=== PATIENT | female | born 1930 | race Caucasian/White ===

== ENCOUNTER 2017-01-08 13:28 | Inpatient (IN) | payer MEDICARE, MEDICAID ==
[~2017-01-08] VITALS: Ht 162.6 cm; Wt 69.8 kg
[~2017-01-08 13:28] MED LIST: ATOR40TA49 PO; AUGM500T7 PO; CLON0.1D TD; CYCL1PAK PO; EZET10 PO; FURO20 PO; KLOR20TA6 PO; LEVO112T2 PO; LEXA10TA PO; LISI10 PO; LISI20 PO; LORA0.5T PO; LORTA5 PO; MIAC200S; OXYB5TAB PO; RIVA10 PO; TAB-TAB PO; WALKER STANDARD
[2017-01-08 13:31] VITALS: BP 164/94; PULSE 108; RESP 24; TEMP 98.2; O2SAT 99
--- NOTE | 2017-01-08 13:48 | PD ---
Physical Exam Time Seen by Provider: 13:47 Narrative 86 y/o female with hx of chf presents with sob and elevated bp for 2-3 weeks. Vital signs reviewed. seen at triage desk. Awaiting bed placement. Data Data Last Documented VS Vital Signs Date Time Temp Pulse Resp B/P Pulse Ox O2 Delivery O2 Flow Rate FiO2 01/08/17 13:31 98.2 108 24 164/94 99 Room Air [facility] Medical Record Reviewed: Yes Supervised Visit with HUAN: Geovanni eFrraro Jan 08, 2017 13:48
--- NOTE | 2017-01-08 16:11 | PD ---
HPI Chief Complaint: Respiratory Symptoms Time Seen by Provider: 16:00 Travel History International Travel<30 days: No Contact w/Intl Traveler<30days: No Traveled to known affect area: No History of Present Illness HPI 86yo F with PMH of dementia, HTN, CHF presents to the ED with worsening sob for the few days. Daughter states pt has had sob for a few weeks and use to take lasix PRN but was taking it every day. Denies any fever, cough, chest pain, n/v , abdominal pain, focal weakness or numbness. PFSH Past Medical History Arthritis: Yes Asthma: No Atrial Fibrillation: Yes Autoimmune Disease: No Blood Disorders: No Anxiety: Yes Depression: Yes Heart Rhythm Problems: Yes (A-FIB) Cancer: No Cardiovascular Problems: Yes High Cholesterol: No Chemotherapy: No Chest Pain: No Congestive Heart Failure: Yes COPD: No Cerebrovascular Accident: Yes Coronary Artery Disease: Yes Dementia: Yes Diabetes: Yes Diminished Hearing: Yes (BILATERAL) Endocrine: Yes Gastrointestinal Disorders: No GERD: No Glaucoma: No Genitourinary: Yes (FREQUENT UTI'S) Headaches: No Hepatitis: No Hiatal Hernia: No Hypertension: Yes Immune Disorder: No Implanted Vascular Access Dvce: Yes Kidney Stones: No Musculoskeletal: Yes (BILATERAL KNEES) Neurologic: Yes (DEMENTIA) Psychiatric: Yes Reproductive: No Respiratory: Yes Immunizations Current: Yes Migraines: No Myocardial Infarction: Yes (X 3) Radiation Therapy: No Renal Failure: Yes (chronic kidney disease) Seizures: No Sickle Cell Disease: No Sleep Apnea: No Thyroid Disease: Yes Ulcer: No Menopausal: Yes : 8 Para: 6 Miscarriage: 2 Past Surgical History Abdominal Surgery: No AICD: No Arteriovenous Shunt: No Body Medical Devices: PIN IN LEFT HIP Cardiac Surgery: Yes Coronary Artery Bypass Graft: Yes (X3) Ear Surgery: No Endocrine Surgery: No Eye Surgery: Yes Genitourinary Surgery: No Gynecologic Surgery: Yes Hysterectomy: Yes Insulin Pump: No Joint Replacement: No Neurologic Surgery: Yes (TIAs x 5 (1994)) Oral Surgery: No Pacemaker: No Thoracic Surgery: No Other Surgery: Yes (Heart sx, hysterectomy sx, vascular sx) Social History Alcohol Use: No Tobacco Use: No Substance Use: No Allergies-Medications (Allergen,Severity, Reaction): Coded Allergies: No Known Allergies (Verified , 03/10/16) Reported Meds & Prescriptions Reported Meds & Active Scripts Active Reported Tramadol (Tramadol HCl) 50 Mg Tab 25 Mg PO Q6HR PRN Calcium (Calcium Carbonate) 600 Mg Tab 600 Mg PO HS Cefuroxime (Cefuroxime Axetil) 500 Mg Tab 500 Mg PO BID Aspirin EC (Aspirin) 81 Mg Tabdr 81 Mg PO HS Nitroglycerin SL (Nitroglycerin) 0.4 Mg Subl 0.4 Mg SL DIRECTED PRN ONE TABLET UNDER THE TONGUE NEEDED FOR CHEST PAIN, MAY REPEAT EVERY FIVE MINUTES FOR A TOTAL OF 3 DOSES OR CALL 911 IF NO RELIEF K-Tab (Potassium Chloride) 10 Meq Tab 10 Meq PO BID Centrum Silver Adult 50+ (Multiple Vitamins W/ Minerals) 1 Tab Tab 1 Tab PO DAILY Lorazepam 0.5 Mg Tab 0.5 Mg PO BID PRN Levothyroxine (Levothyroxine Sodium) 88 Mcg Tab 88 Mcg PO DAILY Lasix (Furosemide) 20 Mg Tab 20 Mg PO DAILY Lexapro (Escitalopram Oxalate) 10 Mg Tab 10 Mg PO HS Calcitonin ([place]) Nasal [place] (Calcitonin [place]) 200 Unit/Act [place] 1 [place] NASAL DAILY Alternate nostrils daily. Atorvastatin (Atorvastatin Calcium) 10 Mg Tab 10 Mg PO TUTA @ 2100 Review of Systems Except as stated in HPI: all other systems reviewed are Neg Physical Exam Narrative GENERAL: 86yo F not in distress. SKIN: Focused skin assessment warm/dry. HEAD: Atraumatic. Normocephalic. CARDIOVASCULAR: Tachycardic in the low 100s. No murmur appreciated. RESPIRATORY: + accessory muscle use. Very mild end expiratory wheezing. Decreased bibasilar breath sounds. GASTROINTESTINAL: Abdomen soft, non-tender, nondistended. No rebound tenderness or guarding. MUSCULOSKELETAL: No obvious deformities. No clubbing. No cyanosis. No edema. NEUROLOGICAL: Awake and alert. No obvious cranial nerve deficits. Motor grossly within normal limits. Normal speech. PSYCHIATRIC: Appropriate mood and affect; insight and judgment normal. Data Data Last Documented VS Vital Signs Date Time Temp Pulse Resp B/P Pulse Ox O2 Delivery O2 Flow Rate FiO2 01/08/17 19:47 98.3 100 18 162/91 99 Nasal Cannula 2 Orders Complete Blood Count With Diff (01/08/17 15:30) Comprehensive Metabolic Panel (01/08/17 15:30) B-Type Natriuretic Peptide (01/08/17 15:30) Magnesium (Mg) (01/08/17 15:30) Ckmb (Isoenzyme) Profile (01/08/17 15:30) Troponin I (01/08/17 15:30) Electrocardiogram (01/08/17 15:30) Chest, Single Ap (01/08/17 15:30) Albuterol Neb (Albuterol Neb) (01/08/17 17:00) Furosemide Inj (Lasix Inj) (01/08/17 17:30) Aspirin (Aspirin) (01/08/17 18:45) Ct Pulmonary Angiogram (01/08/17 18:49) Iohexol 350 Inj (Omnipaque 350 Inj) (01/08/17 20:01) Admit Order (Ed Use Only) (01/08/17 20:51) Labs Laboratory Tests Test 01/08/17 01/08/17 15:48 17:58 White Blood Count 6.0 TH/MM3 Red Blood Count 4.28 MIL/MM3 Hemoglobin 13.2 GM/DL Hematocrit 39.0 % Mean Corpuscular Volume 91.2 FL Mean Corpuscular Hemoglobin 30.7 PG Mean Corpuscular Hemoglobin 33.7 % Concent Red Cell Distribution Width 15.8 % Platelet Count 195 TH/MM3 Mean Platelet Volume 8.3 FL Neutrophils (%) (Auto) 61.9 % Lymphocytes (%) (Auto) 19.8 % Monocytes (%) (Auto) 8.3 % Eosinophils (%) (Auto) 8.8 % Basophils (%) (Auto) 1.2 % Neutrophils # (Auto) 3.7 TH/MM3 Lymphocytes # (Auto) 1.2 TH/MM3 Monocytes # (Auto) 0.5 TH/MM3 Eosinophils # (Auto) 0.5 TH/MM3 Basophils # (Auto) 0.1 TH/MM3 CBC Comment DIFF FINAL Differential Comment B-Type Natriuretic Peptide 459 PG/ML Sodium Level 141 MEQ/L Potassium Level 3.5 MEQ/L Chloride Level 107 MEQ/L Carbon Dioxide Level 23.4 MEQ/L Anion Gap 11 MEQ/L Blood Urea Nitrogen 14 MG/DL Creatinine 1.03 MG/DL Estimat Glomerular Filtration 51 ML/MIN Rate Random Glucose 111 MG/DL Calcium Level 9.4 MG/DL Magnesium Level 2.1 MG/DL Total Bilirubin 1.6 MG/DL Aspartate Amino Transf 28 U/L (AST/SGOT) Alanine Aminotransferase 25 U/L (ALT/SGPT) Alkaline Phosphatase 72 U/L Total Creatine Kinase 77 U/L Troponin I 0.14 NG/ML Total Protein 8.0 GM/DL Albumin 4.0 GM/DL MDM Medical Decision Making Medical Screen Exam Complete: Yes Emergency Medical Condition: Yes Interpretation(s) EKG: Atrial flutter. LAD. Differential Diagnosis CHF exacerbation vs. Pneumonia vs. atypical ACS Narrative Course 86yo F with sob that is worsening for the last few days. Pt has very mild end expiratory wheezing which may be from CHF. Will give 1 albuterol nebulizer. Labs reviewed, only CBC is back. No leukocytosis. Pt took her lasix 20mg today , will give 40mg IV. CXR showed cardiomegaly, minimal basilar atelectasis. Sign out to next team to follow up rest of labs and reevaluate. Dr. Ortiz is pt 's PMD. Diagnosis Primary Impression: CHF (congestive heart failure) Qualified Code: I50.23 - Acute on chronic systolic congestive heart failure Anisa Quintanilla DO Jan 08, 2017 16:11
[2017-01-08 16:29] LABS: AUTOMATED NEUTROPHIL # 3.7 TH/MM3 (1.8-7.7); BASOPHIL # 0.1 TH/MM3 (0-0.2); BASOPHIL % 1.2 % (0.0-2.0); EOSINOPHIL # 0.5 TH/MM3 (0-0.4); EOSINOPHIL % 8.8 % (0.0-4.0); HEMO FLAGS DIFF FINAL; LYMPH % 19.8 % (9.0-44.0); LYMPHOCYTE # 1.2 TH/MM3 (1.0-4.8); MEAN CELL VOLUME 91.2 FL (80.0-100.0); MEAN CORPUSCULAR HEMOGLOBIN 30.7 PG (27.0-34.0); MEAN CORPUSCULAR HGB CONC 33.7 % (32.0-36.0); MONO % 8.3 % (0.0-8.0); NEUT % 61.9 % (16.0-70.0); PLATELET COUNT 195 TH/MM3 (150-450); RED BLOOD COUNT 4.28 MIL/MM3 (4.00-5.30); RED CELL DISTRIBUTION WIDTH 15.8 % (11.6-17.2)
--- NOTE | 2017-01-08 16:30 | RADRPT ---
EXAM DATE/TIME: 01/08/2017 15:37 [facility] COMPARISON: No previous studies available for comparison. INDICATIONS : Short of breath. MEDICAL HISTORY : Hypertension. Myocardial infarction. Dementia. TIA. Head injury. SURGICAL HISTORY : CABG. ENCOUNTER: Initial ACUITY: 1 day PAIN SCORE: 2/10 LOCATION: Bilateral chest FINDINGS: Heart size is enlarged. Minimal basal atelectasis. Postop median sternotomy. No pneumothorax. CONCLUSION: 1. Cardiomegaly. Minimal basal atelectasis. Sarthak Starks MD on January 08, 2017 at 16:22 Board Certified Radiologist. This report was verified electronically.
[2017-01-08] MEDS ORDERED: RESP: ALBUTEROL 2.5 MG/3 ML NEB (SCH) NEB ONE (17:00)
[2017-01-08] MEDS ORDERED: CALC200S NASAL (17:03)
[2017-01-08] MEDS ORDERED: ATOR10TA15 PO (17:03)
[2017-01-08] MEDS ORDERED: MULT1TAB PO (17:08)
[2017-01-08] MEDS ORDERED: LEVO88TA2 PO (17:08)
[2017-01-08] MEDS ORDERED: K-TA10TA PO (17:08)
[2017-01-08] MEDS ORDERED: NITR1SUB3 SL (17:08)
[2017-01-08] MEDS ORDERED: LEXA10TA PO (17:08)
[2017-01-08] MEDS ORDERED: LORA-373 PO (17:08)
[2017-01-08] MEDS ORDERED: ASPI81TA11 PO (17:08)
[2017-01-08] MEDS ORDERED: FURO1TAB62 PO (17:08)
[2017-01-08] MEDS ORDERED: CEFU1TAB20 PO (17:09)
[2017-01-08] MEDS ORDERED: CALC600T25 PO (17:11)
[2017-01-08] MEDS ORDERED: TRAM50TA PO (17:11)
[2017-01-08] MEDS ORDERED: FUROSEMIDE 40 MG/4 ML VIAL IV PUSH ONE (17:30)
[2017-01-08 18:33] LABS: ANION GAP 11 MEQ/L (5-15); BICARBONATE 23.4 MEQ/L (21.0-32.0); BLOOD UREA NITROGEN 14 MG/DL (7-18); CHLORIDE 107 MEQ/L (98-107); GLOMERULAR FILTRATION RATE 51 ML/MIN (>89); MAGNESIUM 2.1 MG/DL (1.5-2.5); POTASSIUM 3.5 MEQ/L (3.5-5.1); SODIUM (NA) 141 MEQ/L (136-145)
[2017-01-08 18:34] LABS: ALT (GPT) 25 U/L (10-53); AST (GOT) 28 U/L (15-37)
[2017-01-08 18:38] LABS: ALKALINE PHOSPHATASE 72 U/L (45-117); TOTAL BILIRUBIN ADULT 1.6 MG/DL (0.2-1.0)
[2017-01-08 18:39] LABS: CREATINE KINASE 77 U/L (26-192)
[2017-01-08] MEDS ORDERED: ASPIRIN 325 MG TAB PO ONE (18:45)
--- NOTE | 2017-01-08 18:49 | PD ---
Data Data Last Documented VS Vital Signs Date Time Temp Pulse Resp B/P Pulse Ox O2 Delivery O2 Flow Rate FiO2 01/08/17 19:47 98.3 100 18 162/91 99 Nasal Cannula 2 Orders Complete Blood Count With Diff (01/08/17 15:30) Comprehensive Metabolic Panel (01/08/17 15:30) B-Type Natriuretic Peptide (01/08/17 15:30) Magnesium (Mg) (01/08/17 15:30) Ckmb (Isoenzyme) Profile (01/08/17 15:30) Troponin I (01/08/17 15:30) Electrocardiogram (01/08/17 15:30) Chest, Single Ap (01/08/17 15:30) Albuterol Neb (Albuterol Neb) (01/08/17 17:00) Furosemide Inj (Lasix Inj) (01/08/17 17:30) Aspirin (Aspirin) (01/08/17 18:45) Ct Pulmonary Angiogram (01/08/17 18:49) Iohexol 350 Inj (Omnipaque 350 Inj) (01/08/17 20:01) Admit Order (Ed Use Only) (01/08/17 20:51) Labs Laboratory Tests Test 01/08/17 01/08/17 15:48 17:58 White Blood Count 6.0 TH/MM3 Red Blood Count 4.28 MIL/MM3 Hemoglobin 13.2 GM/DL Hematocrit 39.0 % Mean Corpuscular Volume 91.2 FL Mean Corpuscular Hemoglobin 30.7 PG Mean Corpuscular Hemoglobin 33.7 % Concent Red Cell Distribution Width 15.8 % Platelet Count 195 TH/MM3 Mean Platelet Volume 8.3 FL Neutrophils (%) (Auto) 61.9 % Lymphocytes (%) (Auto) 19.8 % Monocytes (%) (Auto) 8.3 % Eosinophils (%) (Auto) 8.8 % Basophils (%) (Auto) 1.2 % Neutrophils # (Auto) 3.7 TH/MM3 Lymphocytes # (Auto) 1.2 TH/MM3 Monocytes # (Auto) 0.5 TH/MM3 Eosinophils # (Auto) 0.5 TH/MM3 Basophils # (Auto) 0.1 TH/MM3 CBC Comment DIFF FINAL Differential Comment B-Type Natriuretic Peptide 459 PG/ML Sodium Level 141 MEQ/L Potassium Level 3.5 MEQ/L Chloride Level 107 MEQ/L Carbon Dioxide Level 23.4 MEQ/L Anion Gap 11 MEQ/L Blood Urea Nitrogen 14 MG/DL Creatinine 1.03 MG/DL Estimat Glomerular Filtration 51 ML/MIN Rate Random Glucose 111 MG/DL Calcium Level 9.4 MG/DL Magnesium Level 2.1 MG/DL Total Bilirubin 1.6 MG/DL Aspartate Amino Transf 28 U/L (AST/SGOT) Alanine Aminotransferase 25 U/L (ALT/SGPT) Alkaline Phosphatase 72 U/L Total Creatine Kinase 77 U/L Troponin I 0.14 NG/ML Total Protein 8.0 GM/DL Albumin 4.0 GM/DL [facility] Medical Record Reviewed: Yes Supervised Visit with HUAN: No Interpretation(s) Vital Signs Date Time Temp Pulse Resp B/P Pulse Ox O2 Delivery O2 Flow Rate FiO2 01/08/17 16:03 96 20 96 Room Air 01/08/17 13:31 98.2 108 24 164/94 99 Room Air Laboratory Tests Test 01/08/17 01/08/17 15:48 17:58 White Blood Count 6.0 TH/MM3 (4.0-11.0) Red Blood Count 4.28 MIL/MM3 (4.00-5.30) Hemoglobin 13.2 GM/DL (11.6-15.3) Hematocrit 39.0 % (35.0-46.0) Mean Corpuscular Volume 91.2 FL (80.0-100.0) Mean Corpuscular Hemoglobin 30.7 PG (27.0-34.0) Mean Corpuscular Hemoglobin 33.7 % Concent (32.0-36.0) Red Cell Distribution Width 15.8 % (11.6-17.2) Platelet Count 195 TH/MM3 (150-450) Mean Platelet Volume 8.3 FL (7.0-11.0) Neutrophils (%) (Auto) 61.9 % (16.0-70.0) Lymphocytes (%) (Auto) 19.8 % (9.0-44.0) Monocytes (%) (Auto) 8.3 % (0.0-8.0) Eosinophils (%) (Auto) 8.8 % (0.0-4.0) Basophils (%) (Auto) 1.2 % (0.0-2.0) Neutrophils # (Auto) 3.7 TH/MM3 (1.8-7.7) Lymphocytes # (Auto) 1.2 TH/MM3 (1.0-4.8) Monocytes # (Auto) 0.5 TH/MM3 (0-0.9) Eosinophils # (Auto) 0.5 TH/MM3 (0-0.4) Basophils # (Auto) 0.1 TH/MM3 (0-0.2) CBC Comment DIFF FINAL Differential Comment B-Type Natriuretic Peptide 459 PG/ML (0-100) Sodium Level 141 MEQ/L (136-145) Potassium Level 3.5 MEQ/L (3.5-5.1) Chloride Level 107 MEQ/L (98-107) Carbon Dioxide Level 23.4 MEQ/L (21.0-32.0) Anion Gap 11 MEQ/L (5-15) Blood Urea Nitrogen 14 MG/DL (7-18) Creatinine 1.03 MG/DL (0.50-1.00) Estimat Glomerular Filtration 51 ML/MIN (>89) Rate Random Glucose 111 MG/DL (74-106) Calcium Level 9.4 MG/DL (8.5-10.1) Magnesium Level 2.1 MG/DL (1.5-2.5) Total Bilirubin 1.6 MG/DL (0.2-1.0) Aspartate Amino Transf 28 U/L (15-37) (AST/SGOT) Alanine Aminotransferase 25 U/L (10-53) (ALT/SGPT) Alkaline Phosphatase 72 U/L (45-117) Total Creatine Kinase 77 U/L (26-192) Troponin I 0.14 NG/ML (0.02-0.05) Total Protein 8.0 GM/DL (6.4-8.2) Albumin 4.0 GM/DL (3.4-5.0) Last Impressions Chest X-Ray 01/08/17 1530 Signed Impressions: Service Date/Time: January 15:37 - CONCLUSION: 1. Cardiomegaly. Minimal basal atelectasis. Sarthak Starks MD Narrative Course patient signed out to me by dr. duff at change of shift Patient is an 86-year-old female with history of hypertension, CHF, dementia, the emergency room with her daughter with complaints of shortness of breath for the past [address] Ortiz put her on Lasix 20 mg daily as it used to be a when necessary medication, reports that this isn't helping with her symptoms. Patient reports that she feels short of breath at rest as well as on exertion. Denies chest pain at this time. Patient was pending lab work and re-eval Patient was reevaluated, reports that she is not feeling any better. BNP is 459 , she was given 40 mg of IV Lasix as well as a neb with no relief of symptoms. BNP 459 Trop 0.14 - patient with no chest pain - ASA ordered for her plan to order CTA to rule out PE Vital Signs Date Time Temp Pulse Resp B/P Pulse Ox O2 Delivery O2 Flow Rate FiO2 01/08/17 19:47 98.3 100 18 162/91 99 Nasal Cannula 2 01/08/17 16:03 96 20 96 Room Air 01/08/17 13:31 98.2 108 24 164/94 99 Room Air Laboratory Tests Test 01/08/17 01/08/17 15:48 17:58 White Blood Count 6.0 TH/MM3 (4.0-11.0) Red Blood Count 4.28 MIL/MM3 (4.00-5.30) Hemoglobin 13.2 GM/DL (11.6-15.3) Hematocrit 39.0 % (35.0-46.0) Mean Corpuscular Volume 91.2 FL (80.0-100.0) Mean Corpuscular Hemoglobin 30.7 PG (27.0-34.0) Mean Corpuscular Hemoglobin 33.7 % Concent (32.0-36.0) Red Cell Distribution Width 15.8 % (11.6-17.2) Platelet Count 195 TH/MM3 (150-450) Mean Platelet Volume 8.3 FL (7.0-11.0) Neutrophils (%) (Auto) 61.9 % (16.0-70.0) Lymphocytes (%) (Auto) 19.8 % (9.0-44.0) Monocytes (%) (Auto) 8.3 % (0.0-8.0) Eosinophils (%) (Auto) 8.8 % (0.0-4.0) Basophils (%) (Auto) 1.2 % (0.0-2.0) Neutrophils # (Auto) 3.7 TH/MM3 (1.8-7.7) Lymphocytes # (Auto) 1.2 TH/MM3 (1.0-4.8) Monocytes # (Auto) 0.5 TH/MM3 (0-0.9) Eosinophils # (Auto) 0.5 TH/MM3 (0-0.4) Basophils # (Auto) 0.1 TH/MM3 (0-0.2) CBC Comment DIFF FINAL Differential Comment B-Type Natriuretic Peptide 459 PG/ML (0-100) Sodium Level 141 MEQ/L (136-145) Potassium Level 3.5 MEQ/L (3.5-5.1) Chloride Level 107 MEQ/L (98-107) Carbon Dioxide Level 23.4 MEQ/L (21.0-32.0) Anion Gap 11 MEQ/L (5-15) Blood Urea Nitrogen 14 MG/DL (7-18) Creatinine 1.03 MG/DL (0.50-1.00) Estimat Glomerular Filtration 51 ML/MIN (>89) Rate Random Glucose 111 MG/DL (74-106) Calcium Level 9.4 MG/DL (8.5-10.1) Magnesium Level 2.1 MG/DL (1.5-2.5) Total Bilirubin 1.6 MG/DL (0.2-1.0) Aspartate Amino Transf 28 U/L (15-37) (AST/SGOT) Alanine Aminotransferase 25 U/L (10-53) (ALT/SGPT) Alkaline Phosphatase 72 U/L (45-117) Total Creatine Kinase 77 U/L (26-192) Troponin I 0.14 NG/ML (0.02-0.05) Total Protein 8.0 GM/DL (6.4-8.2) Albumin 4.0 GM/DL (3.4-5.0) Last Impressions Chest X-Ray 01/08/17 1530 Signed Impressions: Service Date/Time: January 15:37 - CONCLUSION: 1. Cardiomegaly. Minimal basal atelectasis. Sarthak Starks MD Reviewed all labs and studies with patient and micro computer specialist. Plan to obs for CHF exacerbation case reviewed with dr. mancia who accepts pt to service Diagnosis Primary Impression: CHF (congestive heart failure) Qualified Code: I50.23 - Acute on chronic systolic congestive heart failure Additional Impressions: Elevated troponin Pleural effusion Admitting Information Admitting Physician Requests: Observation Selin Patel DO Jan 08, 2017 18:49
[2017-01-08 19:47] VITALS: BP 162/91; PULSE 100; RESP 18; TEMP 98.3; O2SAT 99
[2017-01-08] MEDS ORDERED: IOHEXOL 350 MG/ML 10 ML VIAL (for RAD DIAG) IV ONE (20:01)
--- NOTE | 2017-01-08 20:33 | RADRPT ---
EXAM DATE/TIME: 01/08/2017 19:56 [facility] COMPARISON: No previous studies available for comparison. INDICATIONS : Short of breath for three weeks. IV CONTRAST: 75 cc Omnipaque 350 (iohexol) IV RADIATION DOSE: 10.13 CTDIvol (mGy) MEDICAL HISTORY : Dementia. Hypertension. Renal failure, acute.Diabetes, AFIB, CHF, CAD. SURGICAL HISTORY : CABG ENCOUNTER: Initial ACUITY: 3 weeks PAIN SCALE: Non-responsive LOCATION: Bilateral chest TECHNIQUE: Volumetric scanning of the chest was performed using a pulmonary embolism protocol MIP images were re constructed. Using automated exposure control and adjustment of the mA and/or kV according to patien t size, radiation dose was kept as low as reasonably achievable to obtain optimal diagnostic quality images. DICOM format image data is available electronically for review and comparison. Follow-up recommendations for incidentally detected pulmonary nodules are based at a minimum on nodul e size and patient risk factors according to Fleischner Society Guidelines. FINDINGS: PULMONARY ARTERIES: No filling defects are seen in the pulmonary arteries through the segmental level. LUNGS: There is a mild patchy areas of opacity in the left costophrenic angle which could represent small in filtrates or atelectasis. No focal nodule seen. PLEURAE: Small bilateral pleural effusions measuring 12 mm on the right and 6 mm on the left. MEDIASTINUM: Several enlarged middle mediastinal lymph nodes including subcarinal (2.3 cm) and precarinal (2.0 cm) . CONCLUSION: 1. The study is negative for pulmonary embolism. 2. Small bilateral pleural effusions and mediastinal adenopathy. 3. Small infiltrate or atelectasis left lung base. Matt Lopez MD on January 08, 2017 at 20:28 Board Certified Radiologist. This report was verified electronically.
[2017-01-08] MEDS ORDERED: SODIUM CHLORIDE 0.9% FLUSH 10 ML FLUSH IV FLUSH PRN (21:00)
[2017-01-08] MEDS: DOCUSATE SODIUM 50 MG/SENNA 8.6 MG TAB PO SCH (21:00)
[2017-01-08] MEDS ORDERED: MORPHINE SULFATE 4 MG/ML INJ IV PRN (21:00)
[2017-01-08] MEDS ORDERED: BISACODYL 10 MG SUPP RECTAL PRN (21:00)
[2017-01-08] MEDS ORDERED: ONDANSETRON HCL 4 MG/2 ML VIAL IVP PRN (21:00)
[2017-01-08] MEDS ORDERED: MAGNESIUM HYDROXIDE SUSP 30 ML CUP PO PRN (21:00)
[2017-01-08] MEDS ORDERED: ACETAMINOPHEN 325 MG TAB PO PRN (21:00)
[2017-01-08] MEDS ORDERED: LACTULOSE SYRUP 20 GM/30 ML CUP PO PRN (21:00)
[2017-01-08] MEDS ORDERED: RESP: ALBUTEROL 2.5 MG/IPRATROPIUM 0.5 MG NEB (PRN) NEB (21:00)
[2017-01-08] MEDS ORDERED: SENNOSIDES 8.6 MG TAB PO PRN (21:00)
--- NOTE | 2017-01-08 21:02 | HHI.HP ---
HPI Service [facility] Primary Care Physician Ward Ortiz MD Admission Diagnosis CHF exacerbation Diagnoses: (1) CHF (congestive heart failure) Diagnosis: Principal (2) Elevated troponin Diagnosis: Principal (3) Dehydration Diagnosis: Principal (4) HTN (hypertension) Diagnosis: Principal Travel History International Travel<30 Days: No Contact w/Intl Traveler <30 Da: No Traveled to Known Affected Are: No History of Present Illness This is an 86-year-old female with a PMH of HTN, Anxiety, Depression, A. fib on ASA, CHF (Echo 01/13/14 w/ EF 55-60%), Dementia and h/o CVA who was brought to the ER by Daughter secondary to ongoing SOB. Daughter is [employer] Employee, at bedside providing history. States pt has had ongoing SOB x2-3 wks, usually takes Lasix prn, however no improvement. Called PCP office, Dr. Ortiz, and instructed to come to the ER. No reported fever, chills, cough or chest pain. On arrival, BP 164/94, HR 108, O2 sat 99% on RA, Afebrile. CBC unremarkable. Creatinine 1.03, previously 0.81 on 03/17/16. Troponin 0.14. BNP 459. CXR with cardiomegaly. CTA Pulm negative for PE, small bilateral pleural effusions and mediastinal adenopathy, infiltrate/atelectasis left lung base. S/p Lasix, Albuterol Neb in ER w/ some improvement. Review of Systems Except as stated in HPI: all other systems reviewed are Neg ROS: 14 point review of systems otherwise negative. Past Family Social History Past Medical History PMH: HTN, Anxiety, Depression, A. fib on ASA, CHF (Echo 01/13/14 w/ EF 55-60%), Dementia and h/o CVA Past Surgical History PAST SURGICAL HISTORY: Left Hip Surgery, CABG, Eye Surgery, Hysterectomy Allergies: Coded Allergies: No Known Allergies (Verified , 03/10/16) Family History PAST FAMILY HISTORY: Reviewed. No h/o DM or CAD Social History PAST SOCIAL HISTORY: Negative for alcohol, tobacco or drugs. Physical Exam Vital Signs Vital Signs Date Time Temp Pulse Resp B/P Pulse Ox O2 Delivery O2 Flow Rate FiO2 01/08/17 19:47 98.3 100 18 162/91 99 Nasal Cannula 2 01/08/17 16:03 96 20 96 Room Air 01/08/17 13:31 98.2 108 24 164/94 99 Room Air Physical Exam PE: GENERAL: Elderly white female in no acute distress. Daughter at bedside. HEENT: PERRLA, EOMI. No scleral icterus or conjunctival pallor. No lid lag or facial droop. CARDIOVASCULAR: Regular rate and rhythm. No obvious murmurs to auscultation. No chest tenderness to palpation. RESPIRATORY: No obvious rhonchi or wheezing. Clear to auscultation. Breath sounds equal bilaterally. GASTROINTESTINAL: Abdomen soft, non-tender, nondistended. BS normal. MUSCULOSKELETAL: Extremities without clubbing, cyanosis, or edema. No obvious deformities. NEUROLOGICAL: Awake, alert. No focal neurologic deficits. Moving both upper and lower extremities spontaneously. Laboratory Laboratory Tests Test 01/08/17 01/08/17 15:48 17:58 White Blood Count 6.0 Red Blood Count 4.28 Hemoglobin 13.2 Hematocrit 39.0 Mean Corpuscular Volume 91.2 Mean Corpuscular Hemoglobin 30.7 Mean Corpuscular Hemoglobin 33.7 Concent Red Cell Distribution Width 15.8 Platelet Count 195 Mean Platelet Volume 8.3 Neutrophils (%) (Auto) 61.9 Lymphocytes (%) (Auto) 19.8 Monocytes (%) (Auto) 8.3 Eosinophils (%) (Auto) 8.8 Basophils (%) (Auto) 1.2 Neutrophils # (Auto) 3.7 Lymphocytes # (Auto) 1.2 Monocytes # (Auto) 0.5 Eosinophils # (Auto) 0.5 Basophils # (Auto) 0.1 CBC Comment DIFF FINAL Differential Comment B-Type Natriuretic Peptide 459 Sodium Level 141 Potassium Level 3.5 Chloride Level 107 Carbon Dioxide Level 23.4 Anion Gap 11 Blood Urea Nitrogen 14 Creatinine 1.03 Estimat Glomerular Filtration 51 Rate Random Glucose 111 Calcium Level 9.4 Magnesium Level 2.1 Total Bilirubin 1.6 Aspartate Amino Transf 28 (AST/SGOT) Alanine Aminotransferase 25 (ALT/SGPT) Alkaline Phosphatase 72 Total Creatine Kinase 77 Troponin I 0.14 Total Protein 8.0 Albumin 4.0 Result Diagram: 01/08/17 1548 01/08/17 8088 Assessment and Plan Problem List: (1) CHF (congestive heart failure) ICD Code: I50.9 Status: Acute (2) Elevated troponin ICD Code: R79.89 Status: Acute (3) Dehydration ICD Code: E86.0 Status: Acute (4) HTN (hypertension) ICD Code: I10 Status: Chronic Assessment and Plan A/P: 1. CHF: Acute on Chronic. Echo 01/13/14 w/ EF 55-60%, no recent Echo. BNP 459 , CXR w/ cardiomegaly, CTA Pulm negative for PE, small bilateral effusions, images reviewed by me. S/p Lasix in ER w/ good urine output. Monitor I/O, repeat BNP, check Echo. Lasix-caution w/ dehydration/renal insufficiency. 2. Elevated Trop: Likely secondary to CHF. CTA Pulm negative for PE. Check serial cardiac enzymes for trend. Cardiology eval as needed, does not follow w / Cardiology as outpatient. 3. Dehydration: w/ KAYLEN. Creatinine 1.03, previously 0.81 on 03/17/16. Caution w/ diuresis, monitor I/O, recheck labs in am. 4. HTN: BP 150-160's, resume home medications, monitor BP. 5. DVT Prophylaxis: SCD/Teds. 6. Social work for d/c planning as needed. 7. Case discussed w/ ER physician at length. Problem Qualifiers (1) CHF (congestive heart failure): Qualified Code: I50.23 - Acute on chronic systolic congestive heart failure Keke Ojeda MD Jan 08, 2017 21:02
[2017-01-08] MEDS: SODIUM CHLORIDE 0.9% FLUSH 10 ML FLUSH IV FLUSH SCH (22:19)
[2017-01-08 22:29] VITALS: BP 153/78
[2017-01-08 23:21] VITALS: BP 155/97; PULSE 108; RESP 20; TEMP 98.2; O2SAT 99
[2017-01-09 01:45] VITALS: PULSE 98
[2017-01-09 03:30] LABS: BASOPHIL % 0.2 % (0.0-2.0); EOSINOPHIL # 0.8 TH/MM3 (0-0.4); EOSINOPHIL % 13.3 % (0.0-4.0); HEMATOCRIT 37.8 % (35.0-46.0); HEMO FLAGS DIFF FINAL; LYMPH % 26.2 % (9.0-44.0); LYMPHOCYTE # 1.5 TH/MM3 (1.0-4.8); MEAN CELL VOLUME 91.9 FL (80.0-100.0); MEAN CORPUSCULAR HEMOGLOBIN 30.7 PG (27.0-34.0); MEAN CORPUSCULAR HGB CONC 33.4 % (32.0-36.0); MONO % 8.8 % (0.0-8.0); NEUT % 51.5 % (16.0-70.0); PLATELET COUNT 175 TH/MM3 (150-450); RED BLOOD COUNT 4.12 MIL/MM3 (4.00-5.30); RED CELL DISTRIBUTION WIDTH 15.8 % (11.6-17.2); WHITE BLOOD COUNT 5.8 TH/MM3 (4.0-11.0)
[2017-01-09 03:41] LABS: ALT (GPT) 23 U/L (10-53); ANION GAP 11 MEQ/L (5-15); AST (GOT) 24 U/L (15-37); BICARBONATE 26.5 MEQ/L (21.0-32.0); BLOOD UREA NITROGEN 13 MG/DL (7-18); CHLORIDE 107 MEQ/L (98-107); GLOMERULAR FILTRATION RATE 56 ML/MIN (>89); POTASSIUM 3.4 MEQ/L (3.5-5.1); SODIUM (NA) 144 MEQ/L (136-145)
[2017-01-09 03:45] LABS: ALKALINE PHOSPHATASE 61 U/L (45-117); TOTAL BILIRUBIN ADULT 1.4 MG/DL (0.2-1.0)
[2017-01-09 04:00] VITALS: BP 165/98; PULSE 84; RESP 20; TEMP 98.1; O2SAT 98
[2017-01-09 08:00] VITALS: BP 155/96; PULSE 101; RESP 20; TEMP 97.7; O2SAT 98
[2017-01-09] MEDS: SODIUM CHLORIDE 0.9% FLUSH 10 ML FLUSH IV FLUSH SCH ×2 (08:23→21:40)
[2017-01-09] MEDS: DOCUSATE SODIUM 50 MG/SENNA 8.6 MG TAB PO SCH ×2 (08:23→21:39)
[2017-01-09] MEDS ORDERED: cloNIDine HCL 0.1 MG TAB PO PRN (11:45)
[2017-01-09 12:00] VITALS: BP 128/70; PULSE 83; RESP 20; TEMP 98; O2SAT 98
[2017-01-09] MEDS ORDERED: POTASSIUM CHLORIDE 25 MEQ EFFERVESCENT TAB PO ONE (12:00)
--- NOTE | 2017-01-09 12:00 | HHI.PR ---
Subjective Remarks Follow up shortness of breath. Patient seen and examined today, lying in bed comfortably in no apparent distress. On 2 L NC. Denies any pain. Denies any new acute events overnight. Spoke with RN, patient stable. Tolerating PO intake. Incontinent urine and stool. Afebrile. Cardiac tele reviewed showing controlled atrial fibrillation. Objective Vitals Vital Signs Date Time Temp Pulse Resp B/P Pulse Ox O2 Delivery O2 Flow Rate FiO2 01/09/17 08:00 97.7 101 20 155/96 98 01/09/17 04:00 98.1 84 20 165/98 98 01/09/17 01:45 98 01/08/17 23:21 98.2 108 20 155/97 99 01/08/17 23:04 Nasal Cannula 2.00 01/08/17 22:29 85 18 153/78 97 Nasal Cannula 2 01/08/17 19:47 98.3 100 18 162/91 99 Nasal Cannula 2 01/08/17 16:03 96 20 96 Room Air 01/08/17 13:31 98.2 108 24 164/94 99 Room Air I/O 01/08/17 01/08/17 01/08/17 01/09/17 01/09/17 01/09/17 07:00 15:00 23:00 07:00 15:00 23:00 Intake Total 240 ml Balance 240 ml Intake Oral 240 ml # Voids 1 Result Diagram: 01/09/17 0300 01/09/17 [address] Angiography 01/08/17 1849 Signed Impressions: Service Date/Time: January 19:56 - CONCLUSION: 1. The study is negative for pulmonary embolism. 2. Small bilateral pleural effusions and mediastinal adenopathy. 3. Small infiltrate or atelectasis left lung base. Matt Lopez MD Chest X-Ray 01/08/17 1530 Signed Impressions: Service Date/Time: January 15:37 - CONCLUSION: 1. Cardiomegaly. Minimal basal atelectasis. Sarthak Starks MD Objective Remarks GENERAL: Well-developed, well-nourished female patient in no apparent distress. SKIN: Warm and dry. No rash. HEENT: Atraumatic. Normocephalic. Pupils equal and round. No scleral icterus. No injection or drainage. No nasal bleeding or discharge. Mucous membranes pink and moist. NECK: Trachea midline. No JVD. CARDIOVASCULAR: Irregularly irregular rhythm. RESPIRATORY: No accessory muscle use. Clear to auscultation. Breath sounds equal bilaterally. GASTROINTESTINAL: Abdomen soft, non-tender, nondistended. Hepatic and splenic margins not palpable. MUSCULOSKELETAL: Extremities without clubbing, cyanosis. No obvious deformities. Bilateral lower extremity edema 1+. NEUROLOGICAL: Awake and alert. No obvious cranial nerve deficits. Motor grossly within normal limits. Five out of 5 muscle strength in the arms and legs. Normal speech. PSYCHIATRIC: Appropriate mood and affect; insight and judgment normal. Axox2, confused regarding year. A/P Problem List: (1) CHF (congestive heart failure) ICD Code: I50.9 Status: Acute (2) Elevated troponin ICD Code: R79.89 Status: Acute (3) Dehydration ICD Code: E86.0 Status: Acute (4) HTN (hypertension) ICD Code: I10 Status: Chronic Assessment and Plan This is an 86-year-old female with a PMH of HTN, Anxiety, Depression, A. fib on ASA, CHF (Echo 01/13/14 w/ EF 55-60%), Dementia and h/o CVA who was brought to the ER by Daughter secondary to ongoing SOB. CXR with cardiomegaly. CTA Pulm negative for PE, small bilateral pleural effusions and mediastinal adenopathy, infiltrate/atelectasis left lung base. Congestive heart failure, unspecified type, acute on chronic Bilateral pleural effusions Elevated Troponin, likely secondary to congestive heart failure - Echo from 01/2014 reviewed by me w/ EF 55-60%. 2-D ECHO ordered and pending , follow. BNP 459 --> 388. Monitor I/O closely. Will continue home Lasix PO, creatinine 0.95. Will redraw BMP in am to monitor kidney function, follow. Watch for dehydration. Encourage PO intake. - CXR reviewed by me showing small bilateral pleural effusions and mediastinal adenopathy. Small infiltrate or atelectasis on left base. - CTA reviewed negative for PE. - Cardiology consulted regarding elevated troponins, appreciate recommendations. Hypokalemia: K 3.4. Replaced today. Recheck BMP in am. Atrial fibrillation, chronic: On aspirin at home. Controlled rate, tele reviewed. Dehydration with associated acute kidney injury, resolve: Creatinine 1.03 --> 0.95. Follow am BMP. Hypertension: BP 150-160's, resume home medications, monitor BP. DVT Prophylaxis: SCD/Teds. Lovenox. Discussed with patient, RN and Dr. Price. Discharge Planning Consult physical therapy, likely discharge with home health care. Attending Statement Attestation Patient seen and examined with RON Rodgers. The exam, history, and the medical decision-making described in the above note were completed with the assistance of the dictating practitioner. I attest that I had a [id number] encounter with the patient on the same day, and personally performed all of the history, exam, or medical decision making. Discussed case with her thoroughly after seeing the patient, reviewed and agreed with the plan. Please see addendum in History, Physical examination. See below for any errata/additional input: Patient feels a lot better, shortness of breath a lot better, almost resolved. No chest pain. Not in distress Irregular rhythm Clear breath sounds 1+ edema Agree with Lasix, will give one more dose, consult cardiology, check echocardiogram. Problem Qualifiers (1) CHF (congestive heart failure): Qualified Code: I50.23 - Acute on chronic systolic congestive heart failure Nia Edmond Jan 09, 2017 12:00 Aurora Price MD Jan 09, 2017 16:30
--- NOTE | 2017-01-09 12:15 | EKG ---
Date Performed: 01/08/2017 Time Performed: 15:56:35 PTAGE: 86 years EKG: Atrial fibrillation BORDERLINE LEFT AXIS DEVIATION NONSPECIFIC ST & T-WAVE ABNORMALITY ABNO RMAL ECG INTERPRETATION BASED ON A DEFAULT AGE OF 40 YEARS PREVIOUS TRACING : 03/10/2016 06.11 Compared to the prior study, there is no significant change. DOCTOR: Cuauhtemoc Joshua Interpretating Date/Time 01/09/2017 12:14:03
[2017-01-09] MEDS: LEVOTHYROXINE SODIUM 88 MCG TAB PO SCH (14:14)
[2017-01-09] MEDS: ENOXAPARIN SODIUM 40 MG/0.4 ML SYRINGE SQ SCH (14:15)
[2017-01-09] MEDS: FUROSEMIDE 20 MG TAB PO SCH (14:15)
--- NOTE | 2017-01-09 14:35 | HHI.FF ---
Face to Face Verification Diagnosis: (1) Afib Physical Therapy Order: Evaluate and Treat Home Health Nursing Order: Medical education Oxygen administration education Nursing assessment with vital signs I have seen patient Kailee Wiggins on 01/09/17. My clinical findings support the need for the requested home health care services because: Patient has SOB I certify that my clinical findings support that this patient is homebound because: Unsteady gait/balance Poor cardiac reserve Aurora Price MD Jan 09, 2017 14:35
[2017-01-09] MEDS ORDERED: FUROSEMIDE 20 MG/2 ML VIAL IV PUSH ONE (14:45)
[2017-01-09 16:00] VITALS: BP 136/75; PULSE 90; RESP 20; TEMP 97.3; O2SAT 99
[2017-01-09 20:00] VITALS: BP 149/71; PULSE 88; PULSE 93; RESP 18; TEMP 97.9; O2SAT 96
[2017-01-09] MEDS: ASPIRIN EC 81 MG TABEC PO SCH (21:39)
[2017-01-09] MEDS: POTASSIUM CHLORIDE 10 MEQ CONTROLLED RELEASE TAB PO SCH (21:39)
[2017-01-09] MEDS: CALCIUM CARBONATE 1.25 GM (CA 500 MG) TAB PO SCH (21:39)
[2017-01-09] MEDS: ESCITALOPRAM OXALATE 10 MG TAB PO SCH (21:39)
[2017-01-10] VITALS (7 sets, daily range): BP systolic 131–159; BP diastolic 70–90; PULSE 86–98; RESP 16–18; TEMP 97.3–98.3; O2SAT 96–99
[2017-01-10] MEDS: LEVOTHYROXINE SODIUM 88 MCG TAB PO SCH (05:40)
[2017-01-10] MEDS: CALCITONIN SALM 200 UNIT/SPRAY 3.7 ML BTLN NASAL SCH (09:00)
[2017-01-10] MEDS: MULTIVITAMINS/MINERALS THERAPEUTIC TAB PO SCH (09:16)
[2017-01-10] MEDS: POTASSIUM CHLORIDE 10 MEQ CONTROLLED RELEASE TAB PO SCH ×2 (09:16→20:22)
[2017-01-10] MEDS: DOCUSATE SODIUM 50 MG/SENNA 8.6 MG TAB PO SCH ×2 (09:16→20:21)
[2017-01-10] MEDS: SODIUM CHLORIDE 0.9% FLUSH 10 ML FLUSH IV FLUSH SCH ×2 (09:16→20:21)
[2017-01-10] MEDS: FUROSEMIDE 20 MG TAB PO SCH (09:16)
[2017-01-10 11:22] LABS: POTASSIUM 3.5 MEQ/L (3.5-5.1)
[2017-01-10] MEDS: ENOXAPARIN SODIUM 40 MG/0.4 ML SYRINGE SQ SCH (13:33)
--- NOTE | 2017-01-10 15:37 | HHI.PR ---
Subjective Remarks Follow-up for shortness of breath shortness of breath is better, no chest pain. No overnight events. Objective Vitals Vital Signs Date Time Temp Pulse Resp B/P Pulse Ox O2 Delivery O2 Flow Rate FiO2 01/10/17 12:00 97.3 95 18 151/77 98 01/10/17 09:20 Nasal Cannula 2.00 01/10/17 08:00 97.9 86 16 141/82 97 01/10/17 04:00 98.3 98 18 131/84 98 01/10/17 00:00 98.3 96 18 156/90 99 01/09/17 21:43 Nasal Cannula 2.00 01/09/17 20:00 88 01/09/17 20:00 97.9 93 18 149/71 96 01/09/17 16:00 97.3 90 20 136/75 99 01/09/17 16:00 98 Nasal Cannula 2.00 I/O 01/09/17 01/09/17 01/09/17 01/10/17 01/10/17 01/10/17 07:00 15:00 23:00 07:00 15:00 23:00 Intake Total 240 ml 120 ml 600 ml 0 ml Output Total 650 ml 250 ml Balance 240 ml -530 ml 350 ml 0 ml Intake Oral 240 ml 120 ml 600 ml 0 ml Output Urine Total 650 ml 250 ml # Voids 1 0 # Bowel Movements 0 Result Diagram: 01/09/17 0300 01/10/17 0944 Objective Remarks Not in distress, well-nourished, looks stated age PERRL, pink conjunctiva without injection, anicteric Irregular rhythm, normal rate. Decreased breath sounds, no crackles Trace edema AAO x3, no cranial nerve deficits, moves all 4 extremities, no focal neurologic deficits A/P Problem List: (1) CHF (congestive heart failure) ICD Code: I50.9 Status: Acute (2) Elevated troponin ICD Code: R79.89 Status: Acute (3) Dehydration ICD Code: E86.0 Status: Acute (4) HTN (hypertension) ICD Code: I10 Status: Chronic Assessment and Plan This is an 86-year-old female with a PMH of HTN, Anxiety, Depression, A. fib on ASA, CHF (Echo 01/13/14 w/ EF 55-60%), Dementia and h/o CVA who was brought to the ER by Daughter secondary to ongoing SOB. CXR with cardiomegaly. CTA Pulm negative for PE, small bilateral pleural effusions and mediastinal adenopathy, infiltrate/atelectasis left lung base. Likely diastolic congestive heart failure exacerbation with bilateral effusion elevated troponin. - Echo from 01/2014 reviewed by me w/ EF 55-60%. 2-D ECHO ordered still pending. Clinically better. Continue home dose of Lasix, recheck BMP tomorrow. - CXR reviewed by me showing small bilateral pleural effusions and mediastinal adenopathy. Small infiltrate or atelectasis on left base. EKG showed atrial fibrillation, no ischemic changes. CTA reviewed negative for PE. - Cardiology consulted regarding elevated troponins, appreciate recommendations. Awaiting input, will reconsult. Hypokalemia: Resolved after replacement. Atrial fibrillation, chronic: On aspirin at home. Start Coreg. Awaiting echocardiogram. CHADS = 2, continue aspirin, on Lovenox. Hypertension: BP 150-160's, start Coreg today. DVT Prophylaxis: SCD/Teds. Lovenox. Anticoagulation per cardiology. Discharge Planning Consult physical therapy, likely discharge with home health care. Problem Qualifiers (1) CHF (congestive heart failure): Qualified Code: I50.23 - Acute on chronic systolic congestive heart failure Aurora Price MD Jan 10, 2017 15:37
[2017-01-10] MEDS: ASPIRIN EC 81 MG TABEC PO SCH (20:21)
[2017-01-10] MEDS: ESCITALOPRAM OXALATE 10 MG TAB PO SCH (20:21)
[2017-01-10] MEDS: CALCIUM CARBONATE 1.25 GM (CA 500 MG) TAB PO SCH (20:22)
[2017-01-10] MEDS: CARVEDILOL 3.125 MG TAB PO SCH (20:22)
[2017-01-10] MEDS: ACETAMINOPHEN/HYDROcodone 325 MG/5 MG TAB PO PRN (20:22)
[2017-01-11] VITALS (7 sets, daily range): BP systolic 96–142; BP diastolic 54–95; PULSE 70–103; RESP 16–20; TEMP 96.4–97.7; O2SAT 95–100
[2017-01-11] MEDS: LEVOTHYROXINE SODIUM 88 MCG TAB PO SCH (05:49)
[2017-01-11] MEDS: FUROSEMIDE 20 MG TAB PO SCH (08:57)
[2017-01-11] MEDS: MULTIVITAMINS/MINERALS THERAPEUTIC TAB PO SCH (08:57)
[2017-01-11] MEDS: POTASSIUM CHLORIDE 10 MEQ CONTROLLED RELEASE TAB PO SCH ×2 (08:57→21:09)
[2017-01-11] MEDS: CARVEDILOL 3.125 MG TAB PO SCH ×2 (08:57→21:09)
[2017-01-11] MEDS: DOCUSATE SODIUM 50 MG/SENNA 8.6 MG TAB PO SCH ×2 (08:57→21:09)
[2017-01-11] MEDS: SODIUM CHLORIDE 0.9% FLUSH 10 ML FLUSH IV FLUSH SCH ×2 (08:58→21:10)
[2017-01-11] MEDS: CALCITONIN SALM 200 UNIT/SPRAY 3.7 ML BTLN NASAL SCH (08:58)
[2017-01-11] MEDS ORDERED: ATORVASTATIN 10 MG TAB PO SCH (09:00)
--- NOTE | 2017-01-11 09:17 | ECHRPT ---
Indication: CARDIOMYOPATHY CONCLUSIONS Normal left ventricular size. Mild concentric left ventricular hypertrophy. The left ventricular systolic function is mild to moderately reduced with an estimated ejection frac tion in the range of 40- 45% The left atrial size is iycymtdj-tl-itzonidd dilated. Eynhqoag-ut-ejckqz mitral valve regurgitation. Aortic valve sclerosis is present. Sdkm-mm-tampztwu aortic valve regurgitation, directed posteriorly. There is mild to moderate tricuspid valve regurgitation. There is estimated mild pulmonary hypertension present (range 40-50 mmHg). BP: 155 / 96 HR: 101 Rhythm: MEASUREMENTS (Male / Female) Normal Values Technical Quality:Technically difficult study 2D ECHO LV Diastolic Diameter PLAX 4.2 cm 4.2 - 5.9 / 3.9 - 5.3 cm LV Systolic Diameter PLAX 3.2 cm IVS Diastolic Thickness 1.3 cm 0.6 - 1.0 / 0.6 - 0.9 cm LVPW Diastolic Thickness 1.3 cm 0.6 - 1.0 / 0.6 - 0.9 cm LV Relative Wall Thickness 0.6 LVOT Diameter 1.7 cm Aortic Root Diameter 2.6 cm LA Systolic Diameter LX 4.2 cm 3.0 - 4.0 / 2.7 - 3.8 cm M-MODE AV Cusp Separation MM 1.6 cm DOPPLER AV Peak Velocity 125.0 cm/s AV Peak Gradient 6.3 mmHg AV Mean Gradient 3.5 mmHg AV Velocity Time Integral 18.6 cm LVOT Peak Velocity 42.8 cm/s LVOT Peak Gradient 0.7 mmHg LVOT Velocity Time Integral 5.5 cm LVOT Cardiac Index 720.3 cm/minm AV Area Cont Eq vti 0.7 cm AV Area Cont Eq pk 0.8 cm Mitral E Point Velocity 122.5 cm/s LV E' Lateral Velocity 8.4 cm/s Mitral E to LV E' Lateral Ratio 14.6 LV E' Septal Velocity 7.1 cm/s Mitral E to LV E' Septal Ratio 17.2 TR Peak Velocity 314.0 cm/s TR Peak Gradient 39.4 mmHg PV Peak Velocity 54.7 cm/s PV Peak Gradient 1.2 mmHg FINDINGS LEFT VENTRICLE Normal left ventricular size. Mild concentric left ventricular hypertrophy. The left ventricular systolic function is mild to moderately reduced with an estimated ejection frac tion in the range of 40- 45% There appears to be paradoxical septal motion from a wide complex rhythm.this study was not technica lly sufficient to allow for evaluation of left ventricular diastolic function. RIGHT VENTRICLE Normal right ventricular size and systolic function. LEFT ATRIUM The left atrial size is zraugexg-pe-vlinjgen dilated. RIGHT ATRIUM The right atrial size is normal. ATRIAL SEPTUM Normal atrial septal thickness without atrial level shunting by limited color doppler interrogation. AORTA The aortic root and proximal ascending aorta are normal in size on limited imaging. MITRAL VALVE Structurally normal mitral valve. Aqjsuzbj-qw-tfmruo mitral valve regurgitation. AORTIC VALVE Trileaflet aortic valve. Aortic valve sclerosis is present. Nadh-xy-ontiyikd aortic valve regurgitation. TRICUSPID VALVE Structurally normal tricuspid valve. There is mild to moderate tricuspid valve regurgitation. There is estimated mild pulmonary hypertension present (range 40-50 mmHg). PULMONARY VALVE The pulmonary valve is not well visualized. VESSELS The inferior vena cava is normal in size. There is greater than 50% respiratory change in dimension of the inferior vena cava (normal). PERICARDIUM No pericardial effusion. Jameel Savage MD (Electronically Signed) Final Date:11 January 2017 09:16
[2017-01-11] MEDS: LOSARTAN 50 MG TAB PO SCH (10:27)
--- NOTE | 2017-01-11 10:45 | MB ---
cc: MADDIE WALSH MD DATE OF CONSULTATION: 01/11/2017 REASON FOR CONSULTATION CHF. HISTORY OF PRESENT ILLNESS The patient is a pleasant 86-year-old woman from a nursing facility who presents with hypertension, anxiety, atrial fibrillation and congestive heart failure. The patient was brought to the hospital for worsening shortness of breath and was found to have signs and symptoms consistent with congestive heart failure. She was diuresed and is already feeling well. The patient's history is limited due to dementia but she says she is feeling much better. She does state she has intermittent mild central to right-sided chest pain and shortness of breath but no lightheadedness, dizziness, syncope or palpitation. PAST MEDICAL HISTORY 1. Atrial fibrillation (no longer on warfarin due to fall with subsequent intracranial hemorrhage). 2. Dementia. 3. CVA. 4. CHF. CURRENT MEDICATIONS 1. Coreg 3.125 mg q. 12. 2. Lipitor 10 mg daily. 3. Aspirin 81 mg daily. 4. Lexapro. 5. Lasix 20 mg p.o. daily. ALLERGIES NO KNOWN DRUG ALLERGIES. PHYSICAL EXAMINATION VITAL SIGNS: Afebrile, pulse 89, respiratory rate 16, BP 132/65 sating 95 on 2 liters. GENERAL: Pleasant well-appearing elderly woman, in no distress. NECK: No JVD. LUNGS: Clear to auscultation bilaterally. CARDIOVASCULAR: Regular rate and rhythm. A 1-2/6 systolic murmur is appreciated. ABDOMEN: Benign. EXTREMITIES: No edema. LABORATORY DATA White count 5.8, hematocrit 37.8, platelets 175. Sodium 140, potassium 3.5, chloride 106, bicarb 26.0, BUN 17, creatinine 1.01, glucose 93. Troponins are flat at 0.14, 0.13, 0.12 and BNP is 388. IMAGING STUDIES CT of the chest showed bilateral pleural effusions and mediastinal adenopathy. ECHOCARDIOGRAM Notable for ejection fraction of 40-45% with moderate to severe mitral valve regurgitation and moderate to severe left atrial enlargement. EKG Showed atrial fibrillation with nonspecific ST and T-wave changes. TELEMETRY Current telemetry shows rate-controlled atrial fibrillation. IMPRESSION 1. Congestive heart failure. The patient's shortness of breath likely was from mixed diastolic and acute on chronic systolic congestive heart failure with a very high initial blood pressures. She is now essentially compensated. I will have her ambulate and continue her on oral Lasix to ensure that she is asymptomatic. I will adjust her blood pressure regimen by adding losartan. 2. Atrial fibrillation. She is currently rate controlled on minimal Coreg. I discussed this at length with the patient and her daughter and the patient's daughter wishes to continue her off of anticoagulation due to her high fall risk and history of intracranial bleed. The patient's daughter understands the patient is at a very high stroke risk. If she can ambulate off oxygen and feels well in the morning, I suspect she can be discharged home and I will be happy to follow her up in my office. Thank you again for the opportunity to participate in this patient's care. MD JUDAH James/FRANKI /10:01 AM /10:32 AM
--- NOTE | 2017-01-11 11:22 | HHI.PR ---
Subjective Remarks f/u afib No overnight events, seen by cardiology, started losartan. No chest pain, not short of breath, still on oxygen. Objective Vitals Vital Signs Date Time Temp Pulse Resp B/P Pulse Ox O2 Delivery O2 Flow Rate FiO2 01/11/17 08:00 97.6 92 20 142/68 98 01/11/17 04:00 Nasal Cannula 2.00 01/11/17 04:00 97.7 89 16 132/65 95 01/11/17 00:00 Nasal Cannula 2.00 01/11/17 00:00 97.6 103 20 140/95 98 01/10/17 20:50 89 01/10/17 20:00 98.2 86 18 141/70 96 01/10/17 20:00 Nasal Cannula 2.00 01/10/17 20:00 98.2 86 18 141/72 96 01/10/17 16:00 97.4 89 18 159/86 99 01/10/17 12:00 97.3 95 18 151/77 98 I/O 01/10/17 01/10/17 01/10/17 01/11/17 01/11/17 01/11/17 07:00 15:00 23:00 07:00 15:00 23:00 Intake Total 0 ml 960 ml 680 ml 567 ml Balance 0 ml 960 ml 680 ml 567 ml Intake Oral 0 ml 960 ml 680 ml 120 ml IV Total 447 ml # Voids 0 5 3 2 # Bowel Movements 3 2 0 Result Diagram: 01/09/17 0300 01/10/17 0944 Objective Remarks Not in distress, well-nourished, looks stated age PERRL, pink conjunctiva without injection, anicteric Irregular rhythm, normal rate. Decreased breath sounds, no crackles Trace edema AAO x3, no cranial nerve deficits, moves all 4 extremities, no focal neurologic deficits A/P Problem List: (1) CHF (congestive heart failure) ICD Code: I50.9 Status: Acute (2) Elevated troponin ICD Code: R79.89 Status: Acute (3) Dehydration ICD Code: E86.0 Status: Acute (4) HTN (hypertension) ICD Code: I10 Status: Chronic Assessment and Plan This is an 86-year-old female with a PMH of HTN, Anxiety, Depression, A. fib on ASA, CHF (Echo 01/13/14 w/ EF 55-60%), Dementia and h/o CVA who was brought to the ER by Daughter secondary to ongoing SOB. CXR with cardiomegaly. CTA Pulm negative for PE, small bilateral pleural effusions and mediastinal adenopathy, infiltrate/atelectasis left lung base. Likely diastolic congestive heart failure exacerbation with bilateral effusion elevated troponin. - Echo from 01/2014 reviewed by me w/ EF 55-60%. Repeat echocardiogram showed ejection fraction of 40-45% with LVH. Clinically better. Continue home dose of Lasix, - CXR reviewed showed small bilateral pleural effusions and mediastinal adenopathy. Small infiltrate or atelectasis on left base. EKG showed atrial fibrillation, no ischemic changes. CTA reviewed negative for PE. - Cardiology consulted, added losartan, if doing good tomorrow without oxygen , may discharge. If needing oxygen, would do walk fit test and discharge with portable oxygen Hypokalemia: Resolved after replacement. Atrial fibrillation, chronic: On aspirin at home. Continue Coreg, continue aspirin. Cardiology had a discussion with the family, no anticoagulation for now. Hypertension: BP 150-160's, continue Coreg, stop clonidine DVT Prophylaxis: SCD/Teds. Lovenox. Anticoagulation as above. Discharge Planning likely discharge with home health care if ambulating and oxygen. Problem Qualifiers (1) CHF (congestive heart failure): Qualified Code: I50.23 - Acute on chronic systolic congestive heart failure Aurora Price MD Jan 11, 2017 11:22
[2017-01-11] MEDS: ENOXAPARIN SODIUM 40 MG/0.4 ML SYRINGE SQ SCH (15:12)
[2017-01-11] MEDS: CALCIUM CARBONATE 1.25 GM (CA 500 MG) TAB PO SCH (21:00)
[2017-01-11] MEDS: ACETAMINOPHEN/HYDROcodone 325 MG/5 MG TAB PO PRN (21:09)
[2017-01-11] MEDS: ASPIRIN EC 81 MG TABEC PO SCH (21:10)
[2017-01-11] MEDS: ESCITALOPRAM OXALATE 10 MG TAB PO SCH (21:10)
[2017-01-12] VITALS: BP 105/57; PULSE 68; RESP 18; TEMP 98; O2SAT 97
[2017-01-12 04:00] VITALS: BP 106/58; PULSE 78; RESP 20; TEMP 97.8; O2SAT 99
[2017-01-12] MEDS: LEVOTHYROXINE SODIUM 88 MCG TAB PO SCH (05:39)
[2017-01-12 08:00] VITALS: BP 118/66; PULSE 84; RESP 20; TEMP 97.2; O2SAT 98
[2017-01-12] MEDS: CALCITONIN SALM 200 UNIT/SPRAY 3.7 ML BTLN NASAL SCH (09:00)
[2017-01-12] MEDS: CARVEDILOL 3.125 MG TAB PO SCH (10:18)
[2017-01-12] MEDS: FUROSEMIDE 20 MG TAB PO SCH (10:19)
[2017-01-12] MEDS: MULTIVITAMINS/MINERALS THERAPEUTIC TAB PO SCH (10:19)
[2017-01-12] MEDS: POTASSIUM CHLORIDE 10 MEQ CONTROLLED RELEASE TAB PO SCH (10:19)
[2017-01-12] MEDS: DOCUSATE SODIUM 50 MG/SENNA 8.6 MG TAB PO SCH (10:19)
[2017-01-12] MEDS: LOSARTAN 50 MG TAB PO SCH (10:20)
[2017-01-12] MEDS: SODIUM CHLORIDE 0.9% FLUSH 10 ML FLUSH IV FLUSH SCH (10:21)
--- NOTE | 2017-01-12 10:25 | PD.CARD.PN ---
Subjective Subjective Remarks Pt feels well; rate controlled afib on tele Objective Medications Administered Medications Medications (Trade) Dose Ordered Sig/Jordi Route PRN Reason Start Time Stop Time Status Last Admin Dose Admin Sodium Chloride (NS Flush) 2 ml BID IV FLUSH 01/08/17 21:00 01/12/17 10:21 Acetaminophen/ Hydrocodone Bitart ([place] 5-325 Mg) 1 tab Q4H PRN PO PAIN SCALE 3 TO 5 01/08/17 21:00 01/11/17 21:09 Senna/Docusate Sodium (Sigrid-Colace) 1 tab BID PO 01/08/17 21:00 01/12/17 10:19 Aspirin (Ecotrin Ec) 81 mg HS PO 01/09/17 21:00 01/11/17 21:10 Escitalopram Oxalate (Lexapro) 10 mg HS PO 01/09/17 21:00 01/11/17 21:10 Furosemide (Lasix) 20 mg DAILY PO 01/09/17 12:00 01/12/17 10:19 Levothyroxine Sodium (Synthroid) 88 mcg DAILY@0600 PO 01/09/17 12:00 01/12/17 05:39 Potassium Chloride (KCl) 10 meq BID PO 01/09/17 21:00 01/12/17 10:19 Calcium Carbonate (Oscal) 500 mg HS PO 01/09/17 21:00 01/11/17 21:00 Multivitamins/ Minerals Therapeutic (Theragran M Tab) 1 tab DAILY PO 01/10/17 09:00 01/12/17 10:19 Enoxaparin Sodium (Lovenox Inj) 40 mg Q24H SQ 01/09/17 13:00 01/11/17 15:12 Carvedilol (Coreg) 3.125 mg Q12HR PO 01/10/17 21:00 01/12/17 10:18 Losartan Potassium (Cozaar) 50 mg DAILY PO 01/11/17 10:15 01/12/17 10:20 Vital Signs / I&O Vital Signs Date Time Temp Pulse Resp B/P Pulse Ox O2 Delivery O2 Flow Rate FiO2 01/12/17 04:00 97.8 78 20 106/58 99 01/12/17 00:00 98.0 68 18 105/57 97 01/12/17 00:00 Nasal Cannula 1.50 01/11/17 20:00 97.0 70 18 121/58 100 01/11/17 20:00 Nasal Cannula 1.50 01/11/17 16:00 97.7 97 20 128/70 100 01/11/17 12:00 96.4 75 20 96/54 97 I/O 01/11/17 01/11/17 01/11/17 01/12/17 01/12/17 01/12/17 07:00 15:00 23:00 07:00 15:00 23:00 Intake Total 567 ml 240 ml 120 ml Balance 567 ml 240 ml 120 ml Intake Oral 120 ml 240 ml 120 ml IV Total 447 ml # Voids 2 3 3 # Bowel Movements 0 0 0 Physical Exam GENERAL: This is a well-nourished, well-developed patient, in no apparent distress. CARDIOVASCULAR: Regular rate and irregular rhythm without murmurs, gallops, or rubs. RESPIRATORY: Clear to auscultation. Breath sounds equal bilaterally. No wheezes , rales, or rhonchi. GASTROINTESTINAL: Abdomen soft, non-tender, nondistended. Normal, active bowel sounds MUSCULOSKELETAL: Extremities without clubbing, cyanosis, or edema. NEURO: Alert & Oriented x4 to person, place, time, situation. Moves all ext x4 Imaging Last Impressions CT Angiography 01/08/17 1849 Signed Impressions: Service Date/Time: January 19:56 - CONCLUSION: 1. The study is negative for pulmonary embolism. 2. Small bilateral pleural effusions and mediastinal adenopathy. 3. Small infiltrate or atelectasis left lung base. Matt Lopez MD Chest X-Ray 01/08/17 1530 Signed Impressions: Service Date/Time: January 15:37 - CONCLUSION: 1. Cardiomegaly. Minimal basal atelectasis. Sarthak Starks MD Assessment and Plan Problem List: (1) CHF (congestive heart failure) (2) Dementia (3) Impaired gait (4) Afib Assessment and Plan: rate controlled; discussed at length with the patient's daughter; we agree she is too high a fall risk for anticoagulation and they understand the increased stroke risk Assessment and Plan will sign off please call with questions; will be happy to see her in my office. Problem Qualifiers (1) CHF (congestive heart failure): Qualified Code: I50.23 - Acute on chronic systolic congestive heart failure (2) Afib: Qualified Code: I48.2 - Permanent atrial fibrillation Jameel Savage MD Jan 12, 2017 10:25
[2017-01-12 12:00] VITALS: BP 133/80; PULSE 82; RESP 20; TEMP 97.5; O2SAT 99
[2017-01-12] MEDS: ENOXAPARIN SODIUM 40 MG/0.4 ML SYRINGE SQ SCH (13:00)
[2017-01-12 14:48] VITALS: O2SAT 98
[2017-01-12 16:00] VITALS: BP 136/67; PULSE 81; RESP 20; TEMP 97.7; O2SAT 100
[2017-01-12] MEDS ORDERED: CARV3.125 PO (16:02)
--- NOTE | 2017-01-12 16:03 | HHI.DS ---
Discharge Summary Admission Date Jan 09, 2017 at 11:51 Discharge Date: Jan 12, 2017 Admitting Diagnosis CHF exacerbation (1) CHF (congestive heart failure) ICD Code: I50.9 Diagnosis: Principal (2) Elevated troponin ICD Code: R79.89 (3) Dehydration ICD Code: E86.0 (4) HTN (hypertension) ICD Code: I10 Brief History - From Admission This is an 86-year-old female with a PMH of HTN, Anxiety, Depression, A. fib on ASA, CHF (Echo 01/13/14 w/ EF 55-60%), Dementia and h/o CVA who was brought to the ER by Daughter secondary to ongoing SOB. Daughter is [employer] Employee, at bedside providing history. States pt has had ongoing SOB x2-3 wks, usually takes Lasix prn, however no improvement. Called PCP office, Dr. Ortiz, and instructed to come to the ER. No reported fever, chills, cough or chest pain. On arrival, BP 164/94, HR 108, O2 sat 99% on RA, Afebrile. CBC unremarkable. Creatinine 1.03, previously 0.81 on 03/17/16. Troponin 0.14. BNP 459. CXR with cardiomegaly. CTA Pulm negative for PE, small bilateral pleural effusions and mediastinal adenopathy, infiltrate/atelectasis left lung base. S/p Lasix, Albuterol Neb in ER w/ some improvement. CBC/BMP: 01/09/17 0300 01/10/17 0944 Significant Findings Laboratory Tests Test 01/10/17 09:44 Creatinine 1.01 MG/DL (0.50-1.00) Estimat Glomerular Filtration 52 ML/MIN (>89) Rate Imaging Last Impressions CT Angiography 01/08/17 5939 Signed Impressions: Service Date/Time: January 19:56 - CONCLUSION: 1. The study is negative for pulmonary embolism. 2. Small bilateral pleural effusions and mediastinal adenopathy. 3. Small infiltrate or atelectasis left lung base. Matt Lopez MD Chest X-Ray 01/08/17 1530 Signed Impressions: Service Date/Time: January 15:37 - CONCLUSION: 1. Cardiomegaly. Minimal basal atelectasis. Sarthak Starks MD PE at Discharge Not in distress, well-nourished, looks stated age PERRL, pink conjunctiva without injection, anicteric Irregular rhythm, normal rate. Decreased breath sounds, no crackles Trace edema AAO x3, no cranial nerve deficits, moves all 4 extremities, no focal neurologic deficits Pt Condition on Discharge: Good Discharge Disposition: Discharge Home Discharge Time: > 30 minutes Discharge Instructions DIET: Follow Instructions for: Heart Healthy Diet Activities you can perform: Regular-No Restrictions Follow up Referrals: Cardiology - 2 Weeks PCP Follow-up - 1 Week New Medications: Carvedilol (Coreg) 3.125 Mg Tab 3.125 MG PO Q12HR Heart #60 TAB Continued Medications: Aspirin DR (Aspirin EC) 81 Mg Tabdr 81 MG PO HS Ref 0 TAB Atorvastatin (Atorvastatin) 10 Mg Tab 10 MG PO TuThSa @ 2100 Cholesterol Management #30 Ref 0 TAB Calcitonin ([place]) Nasal [place] (Calcitonin ([place]) Nasal [place]) 200 Unit/Act [place] 1 SPRAY NASAL DAILY Alternate nostrils daily. #3.7 ML Calcium Carbonate (Calcium) 600 Mg Tab 600 MG PO HS Escitalopram (Lexapro) 10 Mg Tab 10 MG PO HS #30 Ref 0 TAB Furosemide (Lasix) 20 Mg Tab 20 MG PO DAILY #30 Ref 0 TAB Levothyroxine (Levothyroxine) 88 Mcg Tab 88 MCG PO DAILY Thyroid #30 Ref 0 TAB Lorazepam (Lorazepam) 0.5 Mg Tab 0.5 MG PO BID PRN ANXIETY Ref 0 TAB Multiple Vitamins W/ Minerals (Centrum Silver Adult 50+) 1 Tab Tab 1 TAB PO DAILY Nitroglycerin SL (Nitroglycerin SL) 0.4 Mg Subl 0.4 MG SL DIRECTED ONE TABLET UNDER THE TONGUE NEEDED FOR CHEST PAIN, MAY REPEAT EVERY FIVE MINUTES FOR A TOTAL OF 3 DOSES OR CALL 911 IF NO RELIEF PRN CHEST PAIN #100 Ref 0 TAB.SL Potassium Chloride ER (K-Tab) 10 Meq Tab 10 MEQ PO BID Electrolyte Replacement #60 Ref 0 TAB Tramadol (Tramadol) 50 Mg Tab 25 MG PO Q6HR PRN PAIN Ref 0 TAB Discontinued Medications: Cefuroxime (Cefuroxime) 500 Mg Tab 500 MG PO BID Infection Ref 0 TAB Preston Mart DO Jan 12, 2017 16:03
[2017-01-12] MEDS ORDERED: LOSA50TA PO (16:37)
== END 2017-01-12 16:43 | disposition home health service (06) | DRG 292 ==
LOC: NEPD 13:28 → NEDA 20:52 → N04B 22:46 → OBSVTOIN 01-09 11:51
PROVIDERS: ADMIT Hospitalist; ATTEND Hospitalist
DX: I11.0 Hypertensive heart disease with heart failure (principal); N17.9 Acute kidney failure, unspecified; E86.0 Dehydration; I48.2 Chronic atrial fibrillation; F03.90 Unspecified dementia, unspecified severity, without behavioral disturbance, psychotic disturbance, mood disturbance, and anxiety; F32.9 Major depressive disorder, single episode, unspecified; E87.6 Hypokalemia; F41.9 Anxiety disorder, unspecified; M19.90 Unspecified osteoarthritis, unspecified site; I50.43 Acute on chronic combined systolic (congestive) and diastolic (congestive) heart failure; I25.10 Atherosclerotic heart disease of native coronary artery without angina pectoris; I25.2 Old myocardial infarction; Z86.73 Personal history of transient ischemic attack (TIA), and cerebral infarction without residual deficits; Z95.1 Presence of aortocoronary bypass graft; Z79.01 Long term (current) use of anticoagulants; H91.90 Unspecified hearing loss, unspecified ear
CPT/HCPCS: 71010; 71275; 80048; 80053; 82550; 83735; 83880; 84484; 85025; 93005; 93306; 94620; 94664; 96374; G0378; G8987-GP; G8988-GP; J1650; J1940; J7613; Q9967